=== PATIENT | male | born 1970 | race Caucasian/White ===

== ENCOUNTER 2018-12-17 09:03 | Emergency (ER) | payer OTHER ==
[~2018-12-17] VITALS: Ht 180.3 cm; Wt 107.5 kg
[2018-12-17] MEDS ORDERED: IMITREX50 MG PO (09:31)
[2018-12-17] MEDS ORDERED: LIPITOR20 MG PO (09:33)
== END 2018-12-17 12:02 | disposition home or self-care (01) ==
LOC: ER 09:03
DX: G43.809 Other migraine, not intractable, without status migrainosus (principal)